=== PATIENT | female | born 1975 | race Caucasian/White ===

== ENCOUNTER → 2019-10-03 14:52 | Outpatient (BNVA) | payer BC, SELFPAY | PROVIDERS: Visit Provider Family Medicine | DX: Z00.00 Encounter for general adult medical examination without abnormal findings (principal); Z11.3 Encounter for screening for infections with a predominantly sexual mode of transmission; Z11.4 Encounter for screening for human immunodeficiency virus [HIV]; E03.9 Hypothyroidism, unspecified; Z11.59 Encounter for screening for other viral diseases | CPT/HCPCS: 80053; 80061; 84443; 85025; 86803; 87491; 87591; 87661; 87806 ==

== ENCOUNTER → 2019-10-06 12:45 | Outpatient (BNVA) | payer BC, SELFPAY | PROVIDERS: Visit Provider Family Medicine | DX: Z11.3 Encounter for screening for infections with a predominantly sexual mode of transmission (principal) | CPT/HCPCS: 87491; 87591; 87661 ==

== ENCOUNTER → 2022-01-25 15:00 | Outpatient (BNVA) | payer BC, SELFPAY | PROVIDERS: PCP Family Medicine; Visit Provider Family Medicine | DX: Z13.1 Encounter for screening for diabetes mellitus (principal); Z13.220 Encounter for screening for lipoid disorders; Z13.6 Encounter for screening for cardiovascular disorders; Z23 Encounter for immunization; R23.9 Unspecified skin changes; Z12.11 Encounter for screening for malignant neoplasm of colon; M79.671 Pain in right foot; Z12.39 Encounter for other screening for malignant neoplasm of breast | CPT/HCPCS: 80053; 80061 ==

== ENCOUNTER → 2022-03-17 09:33 | Outpatient (BNVA) | payer BC, SELFPAY | PROVIDERS: PCP Family Medicine; Visit Provider Family Medicine | DX: R39.9 Unspecified symptoms and signs involving the genitourinary system (principal); B37.3 Candidiasis of vulva and vagina; N90.7 Vulvar cyst; R23.9 Unspecified skin changes | CPT/HCPCS: 81000 ==